=== PATIENT | female | born 1955 | race Caucasian/White ===

== ENCOUNTER 2022-12-17 09:25 | Inpatient (IN) ==
[2022-12-12 15:16] LABS: Basophils # (Auto) 0.08 K/mcL (0.00-0.30); Basophils % (Auto) 0.8 % (0.0-2.0); Eosinophils # (Auto) 0.47 K/mcL (0.00-0.70); Eosinophils % (Auto) 4.7 % (0.0-7.0); Hematocrit 48.4 % (34.1-44.9); Lymphocytes # (Auto) 3.11 K/mcL (1.50-4.80); Lymphocytes % (Auto) 31.2 % (15.5-49.0); Mean Cell Volume 92.7 fL (80.0-100.0); Mean Corpuscular HGB Conc 33.1 g/dL (31.0-36.0); Mean Platelet Volume 10.2 fL (8.8-12.5); Monocytes # (Auto) 0.79 K/mcL (0.10-0.90); Monocytes % (Auto) 7.9 % (1.0-12.0); Platelet Count 286 K/mcL (140-440); RBC 5.22 M/mcL (3.59-5.38)
[2022-12-12 16:00] LABS: Appearance,Urine CLEAR (Clear); Bilirubin,Urine NEGATIVE (Negative); Color,Urine LT. YELLOW; Culture Indicated,Urine No; Glucose,Urine (UA) NEGATIVE (Negative); Ketones,Urine NEGATIVE (Negative); Leukocyte Esterase,Urine NEGATIVE /uL (Negative); Nitrate,Urine NEGATIVE (Negative); Protein,Urine NEGATIVE (Negative); Urine Blood NEGATIVE ery/mcL (Negative); Urobilinogen,Urine Normal
[2022-12-12 16:03] LABS: ALT/SGPT 60 U/L (<40); AST/SGOT 37 U/L (<32); Albumin 4.6 gm/dL (3.2-5.2); Albumin/Globulin Ratio 1.8 (1.0-2.3); Alkaline Phosphatase 110 U/L (39-117); Bilirubin,Total 0.5 mg/dL (0.1-1.0); Blood Urea Nitrogen 13 mg/dL (8-23); Calcium 9.7 mg/dL (8.6-10.4); Carbon Dioxide 26 mmol/L (22-30); Chloride 98 mmol/L (96-108); Globulin 2.5 gm/dL (2.2-3.7); Glomerular Filtration Rate 76; Glucose 93 mg/dL (70-105)
[2022-12-12 16:08] LABS: Estimated Average Glucose(eAG) 160 mg/dL; Hemoglobin A1C 7.2 % Hgb (4.0-6.0)
--- NOTE | 2022-12-15 13:39 | EKG ---
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
[~2022-12-17 09:25] MED LIST: 0.9 % SODIUM CHLORIDE 9 ML, KETOROLAC 30 MG, ROPIVACAINE HCL/PF 49.5 ML, EPINEPHrine 0.... IJ SCH; CELECOXIB 200 MG CAPSULE PO SCH; PREGABALIN 75 MG CAPSULE PO SCH; ceFAZolin 2 GM in DEXTROSE 5% IN WATER 50 ML IV SCH; oxyCODONE 10 MG TAB.ER.12H PO SCH
[2022-12-17] MEDS ORDERED: IPRATROPIUM/ALBUTEROL 3 ML AMPUL.NEB NEB PRN ×2 (15:00→16:44)
[2022-12-17] MEDS ORDERED: SCOPOLAMINE 1 PATCH PATCH TOPICAL PRN (15:00)
[2022-12-17] MEDS ORDERED: TRANEXAMIC ACID 1,000 MG/10 ML VIAL ONE (15:56)
[2022-12-17] MEDS ORDERED: ePHEDrine 50 MG/5 ML SYRINGE (ANEST) IV ONE (15:56)
[2022-12-17] MEDS ORDERED: PROPOFOL 200 MG/20 ML VIAL IV ONE (15:56)
[2022-12-17] MEDS ORDERED: KETAMINE 50 MG/ML Syringe (ANEST) IV ONE (15:56)
[2022-12-17] MEDS ORDERED: LIDOCAINE HCL/PF 100 MG/5 ML SYRINGE IV ONE (15:56)
[2022-12-17] MEDS ORDERED: MAGNESIUM SULFATE 2 GM/50 ML BAG IV ONE (15:56)
[2022-12-17] MEDS ORDERED: DEXAMETHASONE 10 MG/ML VIAL ONE (15:56)
[2022-12-17] MEDS ORDERED: PHENYLephrine 1 MG/10 ML SYRINGE (ANEST) ONE (15:56)
[2022-12-17] MEDS ORDERED: GLYCOPYRROLATE 0.2 MG/ML VIAL IV ONE (15:56)
[2022-12-17] MEDS ORDERED: ONDANSETRON 4 MG/2 ML VIAL ONE (15:56)
[2022-12-17] MEDS ORDERED: ROPIVACAINE HCL/PF 20 ML VIAL IJ ONE (15:56)
[2022-12-17] MEDS ORDERED: HYDROmorphone 0.5 MG/0.5 ML SYRINGE IV PRN (16:44)
[2022-12-17] MEDS ORDERED: fentaNYL 100 MCG/2 ML VIAL IV ONE (16:44)
[2022-12-17] MEDS ORDERED: ACETAMINOPHEN 1,000 MG/100 ML BAG IV ONE (16:44)
[2022-12-17] MEDS ORDERED: MEPERIDINE 25 MG/ML VIAL IV PRN (16:44)
[2022-12-17] MEDS ORDERED: LACTATED RINGERS 250 ML IV PRN (16:44)
[2022-12-17] MEDS ORDERED: NALOXONE HCL 0.4 MG/ML VIAL IV PRN (16:44)
[2022-12-17] MEDS ORDERED: ONDANSETRON 4 MG/2 ML VIAL IV PRN ×2 (16:44→16:51)
[2022-12-17] MEDS ORDERED: LABETALOL 5 MG/ML ML IV PRN (16:44)
[2022-12-17] MEDS ORDERED: METOPROLOL TARTRATE 5 MG/5 ML VIAL IV PRN (16:44)
[2022-12-17] MEDS ORDERED: METHOCARBAMOL 1,000 MG/10 ML VIAL IV PRN (16:44)
[2022-12-17] MEDS ORDERED: LACTATED RINGERS 1,000 ML IV SCH (16:45)
[2022-12-17] MEDS ORDERED: POLYETHYLENE GLYCOL 3350 17 GM PACKET PO PRN (16:51)
[2022-12-17] MEDS ORDERED: BISACODYL 10 MG SUPP.RECT PR PRN (16:51)
[2022-12-17] MEDS ORDERED: FLEETS ADULT ENEMA PR PRN (16:51)
[2022-12-17] MEDS ORDERED: TRANEXAMIC ACID 1,000 MG/10 ML VIAL IV ONE (16:51)
[2022-12-17] MEDS ORDERED: MAGNESIUM HYDROXIDE 30 ML ORAL.SUSP PO PRN (16:51)
[2022-12-17] MEDS ORDERED: DEXTROSE 31 GM ORAL.SUSP PO PRN (16:51)
[2022-12-17] MEDS ORDERED: DEXTROSE 50% 50 ML VIAL IV PRN (16:51)
--- NOTE | 2022-12-17 16:51 | Brief Operative Note ---
Brief Operative Note Date of procedure: 12/17/22 Pre-op diagnosis: Left knee instability s/p total knee, possible impinging pat ellar bone Post-op diagnosis: same Procedure: 1)Revision left total knee arthroplasty 1 component, tibial insert 2)shaving lateral patellar bone Grafts/Implants: Yes (Size 2 11mm CS insert (9mm CR removed)) Anesthesia: GLMA Findings: minimal effusion, mid flexion instability, post revision very stable Complications: none Surgeon: Torrey Galloway Watch Assembly Inspector: Cl Lo Estimated blood loss (cc): 20 Specimens Removed/Pathology: other (c&s x 2, removed poly discarded) Condition: stable Disposition: PACU
[2022-12-17] MEDS ORDERED: RIZATRIPTAN 10 MG PO PRN (16:56)
[2022-12-17] MEDS ORDERED: 0.9 % SODIUM CHLORIDE 1,000 ML IV SCH (17:00)
[2022-12-17] MEDS ORDERED: DULAGLUTIDE 1.5 MG/0.5 ML SUB-Q SCH (17:00)
[2022-12-17] MEDS ORDERED: [UNRECOGNIZED DRUG - OTHER] SUB-Q SCH (17:00)
[2022-12-17] MEDS ORDERED: ALBUTEROL SULFATE 60 PUFF INHALER INH PRN (17:27)
--- NOTE | 2022-12-17 17:35 | XRay Report ---
INDICATION: Post-op total knee TECHNIQUE: AP, patella, crosstable lateral views COMPARISON: Previous examination dated 03/11/2017 FINDINGS: Status post left total knee arthroplasty revision. Alignment is anatomic. There is postsurgical soft tissue and intra-articular gas. IMPRESSION: Left total knee arthroplasty revision. Interpreted and Authenticated by: Janusz Saldaña 12/17/22
[2022-12-17] MEDS: DOCUSATE SODIUM 100 MG CAPSULE PO SCH (20:44)
[2022-12-17] MEDS: oxyCODONE/APAP 5/325MG TABLET PO PRN (20:44)
[2022-12-17] MEDS: ASPIRIN 81 MG TAB.CHEW PO SCH (20:46)
[2022-12-17] MEDS: INSULIN LISPRO 1 UNIT/0.01 ML UNIT SQ SCH ×2 (20:59)
[2022-12-17] MEDS ORDERED: SENNOSIDES 1 TABLET PO SCH (21:00)
[2022-12-17] MEDS ORDERED: DULoxetine 30 MG CAPSULE PO SCH (21:00)
[2022-12-17] MEDS ORDERED: ALPRAZolam 0.5 MG TABLET PO SCH (21:00)
[2022-12-17] MEDS ORDERED: SIMVASTATIN 20 MG TABLET PO SCH (21:00)
[2022-12-17] MEDS: 0.9 % SODIUM CHLORIDE 10 ML SYRINGE IV SCH (21:00)
[2022-12-17] MEDS ORDERED: ARIPIPRAZOLE 5 MG TABLET PO SCH (21:00)
[2022-12-17] MEDS: morphine 4 MG/ML VIAL IV PRN (22:47)
[2022-12-18] MEDS: oxyCODONE/APAP 5/325MG TABLET PO PRN ×3 (00:04→10:09)
[2022-12-18] MEDS: METHIMAZOLE 5 MG TABLET PO SCH ×2 (02:14→08:18)
[2022-12-18] MEDS: morphine 4 MG/ML VIAL IV PRN (02:25)
[2022-12-18] MEDS: ceFAZolin 1 GM VIAL IV SCH ×2 (02:31→07:31)
[2022-12-18] MEDS: 0.9 % SODIUM CHLORIDE 10 ML SYRINGE IV SCH (06:57)
[2022-12-18] MEDS: INSULIN LISPRO 1 UNIT/0.01 ML UNIT SQ SCH (07:30)
--- NOTE | 2022-12-18 07:48 | Discharge Summary ---
Discharge Provider Provider IMPORTANT FOLLOW-UP INFORMATION FOR PCP: Patient information: Note initiated : 12/18/22 at 7:46 am Service Date, if different from initiated Date: [] Patient: Alexandra Strange 67 y/o F admitted on 12/17/22 for Left Total Knee Arthroplasty Revision. Chief Complaint: [] Date of admission: 12/17/22 13:59 Discharge date: 12/18/22 Primary care physician: Harriet Quintero COURSE Hospital Course Hospital course: Pt was admitted for a L TKA. Pt discharged to home post-op day 1. ASA for DVT prophylaxis. f/u 2 weeks. Discharge diagnosis: L knee total knee arthroplasty pain Time spent discussing smoking cessation with patient: 3 to 10 minutes Time Spent with Patient Time attestation: Total time spent providing and/or coordinating discharge services: Time spent: Less than 30 minutes Physical Examination Exam Clean and dry: Yes Weight bearing status: as tolerated Discharge Instructions - TKA Patient Instructions Total Knee Protocol: For Total Knee: Start ROM KYLEE with stationary bike or rocking chair. Work on gaining full extension of knee. Posterior dislocation precautions provided. Hip abductor strengthening and gait training instructions provided. Apply Cryocuff as instructed. Dressing Care: May shower in 2 days Discharge Plan Patient/Caregiver Discharge Instructions Activity: increase activity as tolerated Diet: Regular Diet Instructions: Acetaminophen (By mouth), Aspirin (By mouth), Oxycodone, Rapid Release (By mouth), Meloxicam (By mouth), Knee Replacement (DC) Activity Restrictions/Additional Instructions: Discharge Instructions: Do the exercises at home that physical therapy gave you. Weight bearing as tolerated. Wear comfortable clothing for physical therapy. You will be scheduled to start physical therapy at [facility] [phone], they will call you with an appointment date/time. Take your prescription, photo ID, i nsurance cards, and current medication list with you to your first physical therapy appointment. Please take your prescription to the office today to have Rahat sign them for you. Take your prescription to fern picker any medication. You have the silver dressing, leave in place for 14 days then remove. You may shower with dressing on, pat dry after shower. Do not scrub this dressing. No lotions or powders on this dressing or incision sites. You may start showering on post op day #2, Thursday. To avoid constipation while taking any narcotic pain medication, take an over the counter stool softener/laxative. Use your ice packs as directed, on for 20 minutes at a time, throughout the day. Ice and elevation will help with pain and swelling. If you have any questions or concerns call your orthopedic surgeon before going to the emergency room. [facility] has a robotics application engineer physician 24 hours per day/7 days per week and can be reached at [phone]. Call for fevers above 100.5 or pain not controlled by medication. Your prescriptions are with your discharge information. Some medications were electronically transmitted to your pharmacy of choice. Take Aspirin as prescribed to prevent blood clots (see medication list). This discharge packet is provided to you to help keep you informed about your care. We want to ensure you get everything you need when you go home. You will also be receiving a call from us in a few days to follow up with you and see how you are doing since your discharge. This gives us a chance to listen to any concerns you maybe experiencing since you were discharged or any additional needs you may have, as well as providing us feedback on your care experience. We strive to always provide excellent care and thank you for your feedback and for choosing [facility]. Prescriptions: New aspirin 81 mg Tablet,Chewable 81 mg PO QDAY Qty: 30 0RF meloxicam 7.5 mg Tablet 7.5 mg PO QDAY Qty: 30 0RF oxycodone 5 mg Tablet 5 mg PO Q6H PRN (Reason: Pain) Qty: 30 0RF Rx Instructions: every 6-8 hours per dose acetaminophen [Acetaminophen Extra Strength] 500 mg Tablet 1,000 mg PO TID Qty: 90 0RF No Action Actemra ACTPen 162 mg/0.9 mL pen injector 162 mg subcut QWEEK Qty: 4 0RF alprazolam [Xanax] 1 mg tablet 1 mg PO HS duloxetine [Cymbalta] 30 mg capsule,delayed release(DR/EC) See Rx Instructions .ROUTE .COMPLEX Rx Instructions: takes with 60 mg to equal 90 mg. aripiprazole 2 mg tablet 2 mg PO HS duloxetine 60 mg capsule,delayed release(DR/EC) See Rx Instructions .ROUTE .COMPLEX Rx Instructions: 30 MG PLUS 60 MG TO EQUAL 90 MG AT BEDTIME (90 MG NOT AVAILABLE) meloxicam 7.5 mg tablet 7.5 mg PO BIDWMEAL Qty: 30 1RF simvastatin 20 MG tablet 20 mg PO HS losartan 50 mg Tablet 50 mg PO QAM Patient Comments: Patient reports last dose as being 04/14/22. hydrocodone-acetaminophen 10-325 mg Tablet 1 tab PO Q6H PRN (Reason: Pain) methimazole 5 mg tablet 5 mg PO BID Trulicity 1.5 mg/0.5 mL pen injector 1.5 mg subcut .QWEEK Rx Instructions: EVERY THURSDAY Actemra ACTPen 162 mg/0.9 mL pen injector 0.9 mg subcut .QWEEK rizatriptan 10 mg Tablet 10 mg PO ONCE PRN (Reason: Migraine Headache) Rx Instructions: as a single dose albuterol 90 mcg/actuation Aerosol 90 mcg INHALATION DAILY PRN (Reason: SOB) Other Ambulatory Orders: Physical Therapy at Discharge - TKA (Routine) Location: None Selected Ordered By: Cl Lo Follow Up Plan Follow up with: Cl Lo PA-C [Physician [employer]] - 12/29/22 8:50 am Patient Disposition: Home, Self-Care Discharge Orders: Discharge Order (Routine); Ordered 12/18/22 Ordered By: Cl Lo Pending Pending Pending: Resuscitation Status Resuscitate (Full Code) Diet Consistent Carbohydrate Diet Start ThuDec 17 1651 Alprazolam (Alprazolam 0.5 Mg Tablet) 1 mg PO HS [facility] Last Admin: 12/17/22 20:45 Dose: 1 mg Documented By: DONG Aspirin (Aspirin 81 Mg Tab.Chew) 81 mg PO BID [facility] Last Admin: 12/17/22 20:46 Dose: 81 mg Documented By: DONG Cefazolin Sodium (Cefazolin 1 Gm Vial) 2 gm IV Q8H [facility]; Protocol Stop: 12/18/22 08:01 Last Admin: 12/18/22 07:31 Dose: 2 gm Documented By: Admin: 12/18/22 02:31 Dose: 2 gm Documented By: DONG Diagnostic Test (Pha) (Accu-Chek 1 Each Strip) 1 each FS ACHS [facility] Last Admin: 12/18/22 07:30 Dose: 1 each Documented By: Admin: 12/17/22 21:00 Dose: 1 each Documented By: Admin: 12/17/22 17:22 Dose: 1 each Documented By: YOLANDA Docusate Sodium (Docusate Sodium 100 Mg Capsule) 100 mg PO BID [facility] Last Admin: 12/17/22 20:44 Dose: 100 mg Documented By: DONG Duloxetine HCl (Duloxetine 30 Mg Capsule) 90 mg PO [facility] Last Admin: 12/17/22 20:43 Dose: 90 mg Documented By: DONG Insulin Human Lispro (Insulin Lispro 1 Unit/0.01 Ml Unit) 0 unit SQ [facility]; Protocol Last Admin: 12/18/22 07:30 Dose: 6 units Documented By: Admin: 12/17/22 20:59 Dose: 10 units Documented By: Admin: 12/17/22 20:59 Dose: Not Given Documented By: DONG Methimazole (Methimazole 5 Mg Tablet) 5 mg PO BID [facility] Last Admin: 12/18/22 02:14 Dose: Not Given Documented By: DONG Morphine Sulfate (Morphine 4 Mg/Ml Vial) 2 - 6 mg IV Q1HP PRN; Protocol PRN Reason: Per Pain Protocol Last Admin: 12/18/22 02:25 Dose: 4 mg Documented By: Admin: 12/17/22 22:47 Dose: 4 mg Documented By: DONG Oxycodone/Acetaminophen (Oxycodone/Apap 5/325mg Tablet) 1 - 2 tab PO Q4HP PRN; Protocol PRN Reason: Per Pain Protocol Last Admin: 12/18/22 06:09 Dose: 2 tab Documented By: Admin: 12/18/22 00:04 Dose: 2 tab Documented By: Admin: 12/17/22 20:44 Dose: 1 tab Documented By: DONG Senna (Sennosides 1 Tablet) 2 tab PO [facility] Last Admin: 12/17/22 20:43 Dose: 2 tab Documented By: DONG Simvastatin (Simvastatin 20 Mg Tablet) 20 mg PO [facility] Last Admin: 12/17/22 20:46 Dose: 20 mg Documented By: DONG Sodium Chloride (0.9 % Sodium Chloride 10 Ml Syringe) 10 ml IV Q8 [facility] Last Admin: 12/18/22 06:57 Dose: 10 ml Documented By: Admin: 12/17/22 21:00 Dose: 10 ml Documented By: DONG Shift Summary 12/18/22 03:37 Shift Summary by Bibi Sun Primary Diagnosis: Registration Status: Inpatient Date of Surgery (if applicable): 12/17 Pertinent Medical Dx/Issue(s): L total knee arthroplasty, emphysema, anxiety Med management (antibiotics, diuretics, BP): PRN morphine and oxycodone 5-10mg, prophylactic antibiotics Skin/Wound Care: surgical dressing CDI, js wrapped Vital Signs with Trends: VSS O2, liter flow/saturations: RA Pain management (acute vs. chronic): acute surgical pain Lab/Rad (abnormals, trends): Neuro/Mental Status: A/O x4 with intermittent anxiety Cardiac Rhythm, Alarm Settings: Urinary Elimination Device: straight cath x2, then up to BSC Urinary output greater than 30mL/hr? adequate urine output Date of last BM: 12/14 Lines/Tubes: 18g SL IV to L hand Activity: x1 assist to BSC, stand and pivot Recommendations/questions for MD: Discharge Plan (needs, disposition, etc): Initialized on 12/18/22 03:37 - END OF NOTE
[2022-12-18] MEDS: ASPIRIN 81 MG TAB.CHEW PO SCH (08:16)
[2022-12-18] MEDS: DOCUSATE SODIUM 100 MG CAPSULE PO SCH (08:17)
[2022-12-18] MEDS ORDERED: LOSARTAN 50 MG TABLET PO SCH (09:00)
--- NOTE | 2022-12-18 09:09 | Operative Note ---
DATE OF OPERATION: 12/17/2022 PREOPERATIVE DIAGNOSIS: Left knee instability, status post total knee arthroplasty with possible impinging bone on the lateral patella. POSTOPERATIVE DIAGNOSIS: Left knee instability, status post total knee arthroplasty with possible impinging bone on the lateral patella. PROCEDURE PERFORMED: 1. Revision of the left total knee arthroplasty, one component, with revision of the tibial insert from a 9 mm cruciate-retaining insert to an 11 mm cruciate-substituting insert. 2. Shaving of some residual lateral patellar bone past the patellar implant. SURGEON: Torrey Galloway M.D. PULMONOLOGIST: Rahat Lo PA-C. The assistance of the PA was required for the safe and efficient completion of the entire case. The expertise and technical skill of this provider was required throughout the case. The PA assisted with preoperative coordination, intraoperative retraction, wound closure, dressing and splint application, as well as postoperative documentation and care coordination. ANESTHESIA: Spinal plus general. DRAINS: None. SPECIMEN: Culture and sensitivity x2 as well as removed polyethylene insert and wire. ESTIMATED BLOOD LOSS: 30 mL. COMPLICATIONS: None. POSTOPERATIVE CONDITION: Stable. INDICATIONS FOR SURGERY: This is a 67-year-old female who had a total knee arthroplasty placed about 5 years ago. She did well for the first two to three years and then had progressive worsening pain. X-rays appeared normal. Workup for infection was negative. Clinically, she did have some mid flexion instability. Also, there was a bump over the patella which bothered her, which was thought to be bone. FINDINGS AT SURGERY: She did have no obvious evidence of infection. There was minimal joint effusion. There was no evidence of loose implants. There was laxity. There was very minimal bone overhanging the patella; however, I think her symptoms were coming from nonabsorbable suture knots from her first surgery. PROCEDURE IN DETAIL: The patient had been seen preoperatively and informed consent had been obtained after discussion of risks and benefits of surgery. Risks including, but not limited to, bleeding; infection, potentially resulting in multiple surgical procedures and worst case scenario, possibly with an above-knee amputation; injury to nerves, blood vessels, other surrounding structures; anesthetic risks; incomplete or no resolution of her symptoms; possible worsening of stiffness, swelling, and pain. She understood these risks and wished to proceed. Correct operative site was marked preoperatively and the patient was given spinal anesthesia. She was then taken to the operating room and LMA general performed. Left lower extremity was carefully prepped and draped in normal sterile fashion. A timeout was performed verifying patient name, operative site, and plan. Ioban was used to cover all skin surfaces and an Esmarch was used to exsanguinate the extremity, and tourniquet was inflated to 300 mmHg. The previous scar was used with a scalpel through skin, which was very thin and friable. As best as I could, I tried to develop a full-thickness flap and we encountered then the nonabsorbable suture knots, which I think she thought was bone. I carefully cut each suture knot on one side, so the suture material could be removed in its entirety. A total of three superior medial and one inferior medial were removed. IrriSept was irrigated and then a medial parapatellar arthrotomy made. There was very minimal joint fluid. I did go ahead and take two cultures of the joint just for completeness sake. I then did an anterior medial subperiosteal exposure of the proximal tibia. The retropatellar tendon scar tissue was excised with Bovie. This allowed us to then sublux the patella off to the side. We then used the osteotome to remove the insert. We verified it was a 9 mm cruciate retaining. I removed some scar tissue from around the tray and then we trialed an 11 CS insert. This was very snug. I was still able to get full extension, but the mid flexion instability was completely resolved. I went ahead and opened an 11 CS insert. We did expose the lateral facet of the patella. There was a small amount of bone overhanging there, so I did use a saw to shave off that bone. We then irrigated with IrriSept, after a minute pulse lavaged with saline, and then the insert was impacted and fully seated. We took the knee through range of motion and again verified good stability with full extension. I injected pain cocktail into the pericapsular tissues and then the knee was placed in about 45 degrees of flexion. A chose to place only one lyxumb-kp-wetry FiberWire to try and decrease the amount of suture knots that might bother her; however, because that was just a high-stress area, I felt at least one nonabsorbable suture was necessary. I then used a Stratafix to close the remaining arthrotomy, starting at the mid patella and running distal and then back up oversewing it and cutting and then a second one running from the mid patella proximal up the quad tendon and back down oversewing. Final IrriSept irrigation was done, after a minute final pulse lavage. Monocryl was used for subcutaneous closure and then janey for skin. Xeroform and a sterile dressing were applied. Tourniquet was released. The patient was awakened, extubated, and transferred to recovery in stable condition. [email or web address]:[email or web address] Job ID: [id number] Doc ID: [id number] Torrey Galloway MD
== END 2022-12-18 10:30 | disposition home or self-care (01) | DRG 468 ==
LOC: MEDSUR 13:59 → EDSTATUS 17:40
PROVIDERS: ADMIT Orthopaedic Surgery; ATTEND Orthopaedic Surgery